=== PATIENT | female | born 1990 ===

== ENCOUNTER 2020-04-15 16:09 | Emergency (ER) | payer OTHER ==
[~2020-04-15] VITALS: Ht 162.6 cm; Wt 49.9 kg
[2020-04-15 16:12] VITALS: Ht 162.6 cm; Wt 49.9 kg
[2020-04-15 17:56] LABS: BASOPHIL % 0.2 % (0-2); PLATELET COUNT 166 x10^3mcL (130-400); RED CELL DISTRIBUTION WIDTH 12.9 % (11.5-14.5)
[2020-04-15 18:07] LABS: CALCIUM 8.9 mg/dL (8.5-10.1); CARBON DIOXIDE 23.9 mmol/L (21-32); CHLORIDE SERUM 101 mmol/L (98-107); CREATININE SERUM 0.7 mg/dL (0.6-1.0); GFR1 > 60 mL/min; GLUCOSE SERUM 82 mg/dL (74-106); SODIUM SERUM 135 mmol/L (136-145)
[2020-04-15 18:12] LABS: ALBUMIN 4.2 g/dL (3.4-5.0); ALKALINE PHOSPHATASE 73 U/L (46-116); ALT/SGPT 15 U/L (14-59); AST/SGOT 25 U/L (15-37); BILIRUBIN TOTAL 0.54 mg/dL (0.20-1.00)
[2020-04-15 19:34] VITALS: BP 92/56
== END 2020-04-15 19:34 | disposition home or self-care (01) ==
LOC: ED 16:09
PROVIDERS: Emergency Medicine
DX: B34.9 Viral infection, unspecified (principal); E86.0 Dehydration; Z20.828 Contact with and (suspected) exposure to other viral communicable diseases
CPT/HCPCS: 87804; J1885; J7030; Q0092; U0003-CS